=== PATIENT | male | born 1990 | race African-American/Black ===

== ENCOUNTER 2018-09-03 11:24 | Emergency (ER) | payer SELFPAY ==
[~2018-09-03] VITALS: Ht 170.2 cm; Wt 77.1 kg
[2018-09-03 11:40] VITALS: BP 141/81
[2018-09-03] MEDS ORDERED: AMOX500C PO (12:18)
--- NOTE | 2018-09-03 12:18 | PHYS DOC ---
Past Medical History Past Medical History: No Pertinent History Past Surgical History: No Surgical History Additional Past Surgical Histo: HERNIA SX Alcohol Use: Occasionally Drug Use: None Adult General Chief Complaint Chief Complaint: FOREIGNBODY EAR HPI HPI Patient is a 28 year old male who presents with a foreign body to his right ear. The patient states that a cockroach crawled into his ear this morning. He is feeling movement and pain in that ear. Review of Systems Review of Systems Constitutional: Denies fever or chills [] Eyes: Denies change in visual acuity, redness, or eye pain [] HENT: See history of present illness Respiratory: Denies cough or shortness of breath [] Cardiovascular: No additional information not addressed in HPI [] Neurologic: Denies headache, focal weakness or sensory changes [] Endocrine: Denies polyuria or polydipsia [] All other systems were reviewed and found to be within normal limits, except as documented in this note. Allergies Allergies Allergies Coded Allergies Type Severity Reaction Last Updated Verified No Known Drug Allergies 12/13/15 No Physical Exam Physical Exam Constitutional: Well developed, well nourished, no acute distress, non-toxic appearance. [] HENT: Normocephalic, atraumatic, there is a cockroach visualized in the right ear Eyes: PERRLA, EOMI, conjunctiva normal, no discharge. [] Neck: Normal range of motion, no tenderness, supple, no stridor. [] Cardiovascular:Heart rate regular rhythm, no murmur [] Lungs & Thorax: Bilateral breath sounds clear to auscultation [] Neurologic: Alert and oriented X 3, normal motor function, normal sensory function, no focal deficits noted. [] Psychologic: Affect normal, judgement normal, mood normal. [] Current Patient Data Vital Signs Vital Signs Date Time Temp Pulse Resp B/P (MAP) Pulse Ox O2 Delivery O2 Flow Rate FiO2 09/03/18 11:40 97.9 79 18 141/81 (101) 99 Room Air 97.9 EKG EKG [] Radiology/Procedures Radiology/Procedures []The cockroach was killed using peroxide and was removed using lavage. The patient tolerated the procedure well. Following removal of the insect his tympanic membrane was noted to be erythematous. The patient will be placed on antibiotic therapy to cover otitis media. Course & Med Decision Making Course & Med Decision Making Pertinent Labs and Imaging studies reviewed. (See chart for details) [] Dragon Disclaimer Dragon Disclaimer This electronic medical record was generated, in whole or in part, using a voice recognition dictation system. Departure Departure Impression: Primary Impression: Foreign body in ear Additional Impression: Otitis media Disposition: 01 HOME, SELF-CARE Condition: STABLE Referrals: ORION CAMARILLO MD (PCP) Patient Instructions: Ear Foreign Body, Otitis Media, Adult Additional Instructions: Take the antibiotic as directed. I highly recommend having your house exterminated. Follow-up with your primary care provider for recheck if not improving in 3 days or return to the emergency department if worsening. Scripts Amoxicillin (AMOXICILLIN) 500 Mg Capsule 2 CAP PO BID, #40 CAP Prov: ALEXANDRA STRONG APRN 09/03/18 Problem Qualifiers ALEXANDRA STRONG APRN Sep 03, 2018 12:18
== END 2018-09-03 12:25 | disposition home or self-care (01) ==
LOC: ER 11:24
DX: T16.1XXA Foreign body in right ear, initial encounter (principal); H66.91 Otitis media, unspecified, right ear; X58.XXXA Exposure to other specified factors, initial encounter; Y93.89 Activity, other specified; Y92.89 Other specified places as the place of occurrence of the external cause; Y99.8 Other external cause status
CPT/HCPCS: 69200; 99283; 99284

== ENCOUNTER 2020-01-07 15:34 | Emergency (ER) | payer SELFPAY ==
[~2020-01-07] VITALS: Ht 170.2 cm; Wt 72.7 kg
[~2020-01-07 15:34] MED LIST: AMOX500C PO
[2020-01-07 16:11] VITALS: BP 144/83
[2020-01-07] MEDS ORDERED: ACETAMINOPHEN 500 MG TABLET PO ONE (16:15)
--- NOTE | 2020-01-07 16:32 | RAD ---
PA and lateral views of the chest. Comparison: None. Indication: Fever and cough for 5 days Findings: The heart size is at the upper limits normal. No pneumothorax or effusion. No air space or interstitial disease. The bony structures are intact. Impression: 1. No acute cardiopulmonary process. Electronically signed by: Miguelito Dalton MD (01/07/2020 4:29 PM) [id number]
--- NOTE | 2020-01-07 16:38 | PHYS DOC ---
Past Medical History Past Medical History: No Pertinent History (LILLIANA CRUZ APRN) Past Surgical History: No Surgical History Additional Past Surgical Histo: HERNIA SX (LILLIANA CRUZ APRN) Smoking Status: Current Every Day Smoker Alcohol Use: Occasionally Drug Use: None (LILLIANA CRUZ APRN) Adult General Chief Complaint Chief Complaint: COUGH HPI HPI Patient is a 29 year old male patient who presents to the ED today complaining of a cough that began on Tuesday last week. Patient denies any. Denies any shortness of breath. Reports history of smoking. (LILLIANA CRUZ APRN) Review of Systems Review of Systems Constitutional: Denies fever or chills [] Eyes: Denies change in visual acuity, redness, or eye pain [] HENT: Denies nasal congestion or sore throat [] Respiratory: Reports cough, denies shortness of breath [] Cardiovascular: No additional information not addressed in HPI [] GI: Denies abdominal pain, nausea, vomiting, bloody stools or diarrhea [] : Denies dysuria or hematuria [] Musculoskeletal: Denies back pain or joint pain [] Integument: Denies rash or skin lesions [] Neurologic: Denies headache, focal weakness or sensory changes [] All other systems were reviewed and found to be within normal limits, except as documented in this note. (LILLIANA CRUZ APRN) Current Medications Current Medications Current Medications Medications (Trade) Dose Ordered Sig/Yevgeniy Start Time Stop Time Status Last Admin Dose Admin Acetaminophen (Tylenol) 1,000 mg 1X ONCE 01/07/20 16:15 01/07/20 16:18 DC 01/07/20 16:15 1,000 MG (FAISAL WATTERS MD) Allergies Allergies Allergies Coded Allergies Type Severity Reaction Last Updated Verified No Known Drug Allergies 12/13/15 No (FAISAL WATTERS MD) Physical Exam Physical Exam Constitutional: Well developed, well nourished, no acute distress, non-toxic a ppearance. [] HENT: Normocephalic, atraumatic, bilateral external ears normal, oropharynx moist, no oral exudates, nose normal. [] Eyes: PERRLA, EOMI, conjunctiva normal, no discharge. [] Neck: Normal range of motion, no tenderness, supple, no stridor. [] Cardiovascular:Heart rate regular rhythm, no murmur [] Lungs & Thorax: Bilateral breath sounds clear to auscultation [] Abdomen: Bowel sounds normal, soft, no tenderness, no masses, no pulsatile masses. [] Skin: Warm, dry, no erythema, no rash. [] Back: No tenderness, no CVA tenderness. [] Extremities: No tenderness, no cyanosis, no clubbing, ROM intact, no edema. [] Neurologic: Alert and oriented X 3, normal motor function, normal sensory function, no focal deficits noted. [] Psychologic: Affect normal, judgement normal, mood normal. [] (LILLIANA CRUZ APRN) Current Patient Data Vital Signs Vital Signs Date Time Temp Pulse Resp B/P (MAP) Pulse Ox O2 Delivery O2 Flow Rate FiO2 01/07/20 16:11 100.7 125 16 144/83 (103) 96 Room Air 100.7 (FAISAL WATTERS MD) Lab Values Laboratory Tests Test 01/07/20 16:00 Influenza Type A Antigen Positive (NEGATIVE) Influenza Type B Antigen Negative (NEGATIVE) (FAISAL WATTERS MD) Lab Values Laboratory Tests Test 01/07/20 16:00 Influenza Type A Antigen Positive (NEGATIVE) Influenza Type B Antigen Negative (NEGATIVE) (LILLIANA CRUZ APRN) EKG EKG [] (LILLIANA CRUZ APRN) Radiology/Procedures Radiology/Procedures []PROCEDURE: CHEST PA & LATERAL PA and lateral views of the chest. Comparison: None. Indication: Fever and cough for 5 days Findings: The heart size is at the upper limits normal. No pneumothorax or effusion. No air space or interstitial disease. The bony structures are intact. Impression: 1. No acute cardiopulmonary process. Electronically signed by: Miguelito Dalton MD (01/07/2020 4:29 PM) [id number] DICTATED and SIGNED BY: MIGUELITO DALTON MD DATE: 01/07/201628 (LILLIANA CRUZ APRN) Course & Med Decision Making Course & Med Decision Making Pertinent Labs and Imaging studies reviewed. (See chart for details) This is a 29-year-old male patient presenting to the ED today with cough that began last week on Tuesday. Patient is febrile with a temperature of 100.7. Was given Tylenol in the ED. Chest x-ray interpreted by radiologist as negative for any acute findings. Positive influenza A, patient has been ill for more than 2 days. Supportive care measures recommended. Discharged to home. (LILLIANA CRUZ APRN) Course & Med Decision Making Staff Physician Addendum: I was working in the ER during the course of this patient's visit. I was available for consultation as needed, but I was not directly involved in the care of this patient. (FAISAL WATTERS MD) Dragon Disclaimer Dragon Disclaimer This electronic medical record was generated, in whole or in part, using a voice recognition dictation system. (LILLIANA CRUZ APRN) Departure Departure Impression: Primary Impression: Fever Additional Impressions: Cough Influenza A Disposition: HOME, SELF-CARE Condition: STABLE (he is) Referrals: ORION CAMARILLO MD (PCP) follow up in one week Patient Instructions: Fever, Adult, [id number], Influenza A (H1N1) Additional Instructions: You were evaluated in the emergency room and tested positive for influenza A. Influenza is a viral illness. It will ran its own course. You also have a fever. Please take Tylenol/Motrin for pain or fever. Rest, push fluids. Follow-up with your doctor in the next 1 week. Problem Qualifiers Primary Impression: Fever Fever type: unspecified Qualified Codes: R50.9 - Fever, unspecified LILLIANA CRUZ APRN Jan 07, 2020 16:38 FAISAL WATTERS MD Jan 08, 2020 06:16
[2020-01-07 16:42] LABS: INFLUENZA A PATIENT POSITIVE (NEGATIVE); INFLUENZA B PATIENT NEGATIVE (NEGATIVE)
== END 2020-01-07 16:59 | disposition home or self-care (01) ==
LOC: ER 15:34
DX: J10.1 Influenza due to other identified influenza virus with other respiratory manifestations (principal); R05 Cough; F17.200 Nicotine dependence, unspecified, uncomplicated; Z98.890 Other specified postprocedural states
CPT/HCPCS: 71046; 87804; 99284

== ENCOUNTER 2021-07-08 13:08 | Emergency (ER) | payer SELFPAY | END 2021-07-08 17:09 | disposition left against medical advice (07) | LOC: ER 13:08 | DX: U07.1 COVID-19 (principal); Z53.21 Procedure and treatment not carried out due to patient leaving prior to being seen by health care provider ==